=== PATIENT | male | born 1980 | race Caucasian/White ===

== ENCOUNTER 2022-05-13 22:40 | Emergency (ER) | payer SELFPAY ==
[~2022-05-13 22:40] MED LIST: Iopamidol 300 61% 100 ML VIAL FS ONE
[2022-05-14 00:11] LABS: Mean Corpuscular HGB CONC 34.3 g/dL (32.0-36.0); Mean Corpuscular Hemoglobin 30.6 pg (27.0-33.0); Mean Corpuscular Volume 89.1 fl (81.2-95.1); Mean Platelet Volume 9.9 fl (7.4-10.4); Platelet Count 134 10x3/uL (150-450); RBC Distribution Width 12.1 % (11.5-14.5); Red Blood Cell (RBC) Count 5.23 10x6/uL (4.32-5.72); White Blood Cell (WBC) Count 3.2 10x3/uL (3.5-10.5)
[2022-05-14 00:23] LABS: MDiff Complete? YES; Platelet Morphology Comment Appears Decreased
[2022-05-14 00:28] LABS: ALT (SGPT) 46 U/L (8-55); AST (SGOT) 33 U/L (5-34); Albumin 4.1 g/dL (3.5-5.0); Alkaline Phosphatase 39 U/L (40-110); Anion Gap 17 mmol/L (10-20); BUN (Urea Nitrogen) 12 mg/dL (8.9-20.6); Bilirubin, Total 0.5 mg/dL (0.2-1.2); Calc. Creatinine Clearance 0 mL/min (70-130); Calcium 8.3 mg/dL (7.8-10.44); Carbon Dioxide 22 mmol/L (22-29); Chloride 106 mmol/L (98-107); Estimated GFR 71; Globulin 2.9 g/dL (2.4-3.5); Glucose 140 mg/dL (70-105); Lipase 21 U/L (8-78); Potassium 3.8 mmol/L (3.5-5.1); Sodium 141 mmol/L (136-145)
[2022-05-14] MEDS ORDERED: Metoclopramide HCl 10 MG/2 ML VIAL ONE (00:41)
[2022-05-14 00:55] LABS: Band 11 % (5-11); Lymphocytes 12 % (21-51); Monocytes 11 % (0-10); Neutrophil 59 % (42-75); Reactive Lymphocytes 5 % (0-10)
[2022-05-14 02:07] LABS: SARS-CoV-2 NAA Rapid Test DETECTED (NotDetected)
[2022-05-14 02:26] LABS: Bilirubin Neg (Negative); Blood, Urine Negative (Negative); Clarity Clear (Clear); Glucose, Urine (Dipstick) Normal (Negative); Ketone, Urine 50 mg/dL (Negative); Leukocyte Negative (Negative); Nitrite Negative (Negative); Protein, Urine (Dipstick) 15 mg/dl (Neg-Trace); Urobilinogen Normal mg/dL (Less than 2)
[2022-05-14] MEDS ORDERED: Promethazine HCl 25 MG/ML VIAL ONE (02:30)
[2022-05-14] MEDS ORDERED: Piperacillin/Tazobactam 3.375 GM VIAL ONE (03:40)
== END 2022-05-14 04:13 | disposition short-term general hospital (02) ==
LOC: CSHERS 22:40
DX: U07.1 COVID-19 (principal)
CPT/HCPCS: 36415; 71045; 74177; 80053; 81003; 83690; 84484; 85025; 87040; 93005; 96374; 96375; J2543; J2550; J2765; Q9967